=== PATIENT | male | born 1975 | race Caucasian/White ===

== ENCOUNTER 2024-03-07 19:12 | Emergency (ER) | payer OTHER, SELFPAY ==
[2024-03-07 19:15] VITALS: BP 136/83; PULSE 79; TEMP 37; O2SAT 96; BMI 31.2
--- NOTE | 2024-03-07 19:38 | XR_ITS ---
The [address] [address] Patient Name: GREGOR DAY MRN: [id number] date: 1975 Sex: M Assigned Patient Location: ER Current Patient Location: ED.MAIN Accession/Order Number: [id number] Exam Date: 03/07/2024 19:52 Report Date: 03/07/2024 20:41 At the request of: LACEY ROBERTSON Procedure: XR hand LT min 3V EXAM: XR hand LT min 3V HISTORY: Laceration, r/o foreign body, congenital defect COMPARISON: None. TECHNIQUE: 3 views of the right hand FINDINGS: Proximal phalanx of the thumb is visualized with possible additional small rudimentary osseous structures within the left thumb. However, the second through fifth digits are nonvisualized. 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 No acute fracture seen. The visualized joint alignment is unremarkable. A subtle 1.7 mm high density is seen within the distal soft tissues between the third and fourth metacarpals, which may represent a tiny retained foreign body. Please correlate clinically. XR/XR hand LT min 3V IMPRESSION: A subtle 1.7 mm high density is seen within the distal soft tissues between the third and fourth metacarpals, which may represent a tiny retained foreign body. Please correlate clinically. Electronically authenticated by: NATALIIA DWYER Date: 03/07/2024 20:41
--- NOTE | 2024-03-07 19:40 | ED_ITS ---
Documented by User: Padilla Lester MD 03/07/24 21:18 HPI - Wound/Laceration General Chief Complaint: Wound/Laceration Stated Complaint: LEFT HAND INJURY Time Seen by Provider: 03/07/24 19:36 Source: patient Mode of arrival: ambulance Limitations: no limitations History of Present Illness HPI narrative: 48-year-old male presents for laceration of the dorsum of his left hand. It occurred from a broken drill bit just before coming into the emergency department. He does not know when his last tetanus shot was, it has been a long time. 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 No other injury was sustained. Related Data Home Medications ?Medication ?Instructions ?Recorded ?Confirmed rivaroxaban 20 mg tablet (Xarelto) 20 mg PO DAILY 03/07/24 03/07/24 Previous Rx's ?Medication ?Instructions ?Recorded cephalexin 500 mg capsule 500 mg PO TID 5 days #15 caps 03/07/24 Allergies Allergy/AdvReac Type Severity Reaction Status Date / Time No Known Drug Allergies Allergy Verified 03/07/24 19:14 Review of Systems ROS Narrative A ten point review of systems is negative except as noted above. Exam Narrative Exam Narrative: Nurses note and vital signs reviewed and patient is not hypoxic. General: The patient appears well and in no apparent distress. Patient is resting comfortably on cart. Skin: Warm, dry, no pallor noted. There is no rash noted. Head: Normocephalic, atraumatic Eye: Normal conjunctiva, no drainage Ears, Nose, Mouth, and Throat: oral mucosa is moist. Nares patent. 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 He has a transverse distal laceration on the dorsum of his hand that is 4.5 cm in length and irregular. No active bleeding or obvious foreign body. Neurological: Awake and alert Psychiatric: Cooperative Constitutional Vital Signs, click to edit/add: Last Vital Signs Temp 98.6 F 03/07/24 19:15 Pulse 79 03/07/24 19:15 Resp 16 03/07/24 19:15 BP 136/83 03/07/24 19:15 Pulse Ox 96 03/07/24 19:15 O2 Del Method Room Air 03/07/24 19:15 Course Vital Signs Vital signs: Vital Signs Temperature 98.6 F 03/07/24 19:15 Pulse Rate 79 03/07/24 19:15 Respiratory Rate 16 03/07/24 19:15 Blood Pressure 136/83 03/07/24 19:15 Pulse Oximetry 96 03/07/24 19:15 Oxygen Delivery Method Room Air 03/07/24 19:15 Temperature 98.6 F 03/07/24 19:15 Pulse Rate 79 03/07/24 19:15 Respiratory Rate 16 03/07/24 19:15 Blood Pressure 136/83 03/07/24 19:15 Pulse Oximetry 96 03/07/24 19:15 Oxygen Delivery Method Room Air 03/07/24 19:15 MDM - Wound/Laceration MDM Narrative Medical decision making narrative: The wound has been repaired and he is placed on a short course of prophylactic antibiotic. Tetanus status was also updated. The possible foreign body is not in the location of his laceration. Differential Diagnosis Differential diagnosis: Likely laceration Imaging Data Hand x-ray: Radiologist's impression: ITS Impressions Hand X-Ray 03/07/24 19:38 IMPRESSION: A subtle 1.7 mm high density is seen within the distal soft tissues between the third and fourth metacarpals, which may represent a tiny retained foreign body. Please correlate clinically. Electronically authenticated by: NATALIIA DWYER Date: 03/07/2024 20:41 Discharge Plan Discharge Stand Alone Forms: Portal Instructions Chief Complaint: Wound/Laceration Clinical Impression: Laceration of hand, left Patient Disposition: Home, Self-Care Time of Disposition Decision: 20:44 Condition: Good Prescriptions / Home Meds: New cephalexin 500 mg capsule 500 mg PO TID 5 Days Qty: 15 0RF No Action Xarelto 20 mg tablet 20 mg PO DAILY Rx Instructions: must administer with evening meal Print Language: Turkish Instructions: Laceration (ED) Additional Instructions: wound recheck in 2-3 days, suture removal in 10 days Keep clean and dry. Referrals: [facility] [Outside] - As soon as possible Physician,Non-Staff, [Primary Care Provider] - 1 week Documented by User: ALFREDO Mendez 03/07/24 20:47 HPI - Wound/Laceration General Chief Complaint: Wound/Laceration Stated Complaint: LEFT HAND INJURY Time Seen by Provider: 03/07/24 19:36 Related Data Home Medications ?Medication ?Instructions ?Recorded ?Confirmed rivaroxaban 20 mg tablet (Xarelto) 20 mg PO DAILY 03/07/24 03/07/24 Previous Rx's ?Medication ?Instructions ?Recorded cephalexin 500 mg capsule 500 mg PO TID 5 days #15 caps 03/07/24 Allergies Allergy/AdvReac Type Severity Reaction Status Date / Time No Known Drug Allergies Allergy Verified 03/07/24 19:14 Exam Constitutional Vital Signs, click to edit/add: Last Vital Signs Temp 98.6 F 03/07/24 19:15 Pulse 79 03/07/24 19:15 Resp 16 03/07/24 19:15 BP 136/83 03/07/24 19:15 Pulse Ox 96 03/07/24 19:15 O2 Del Method Room Air 03/07/24 19:15 Course Vital Signs Vital signs: Vital Signs Temperature 98.6 F 03/07/24 19:15 Pulse Rate 79 03/07/24 19:15 Respiratory Rate 16 03/07/24 19:15 Blood Pressure 136/83 03/07/24 19:15 Pulse Oximetry 96 03/07/24 19:15 Oxygen Delivery Method Room Air 03/07/24 19:15 Temperature 98.6 F 03/07/24 19:15 Pulse Rate 79 03/07/24 19:15 Respiratory Rate 16 03/07/24 19:15 Blood Pressure 136/83 03/07/24 19:15 Pulse Oximetry 96 03/07/24 19:15 Oxygen Delivery Method Room Air 03/07/24 19:15 MDM - Wound/Laceration Imaging Data Hand x-ray: Radiologist's impression: ITS Impressions Hand X-Ray 03/07/24 19:38 IMPRESSION: A subtle 1.7 mm high density is seen within the distal soft tissues between the third and fourth metacarpals, which may represent a tiny retained foreign body. Please correlate clinically. Electronically authenticated by: NATALIIA DWYER Date: 03/07/2024 20:41 Discharge Plan Discharge Stand Alone Forms: Portal Instructions Chief Complaint: Wound/Laceration Clinical Impression: Laceration of hand, left Patient Disposition: Home, Self-Care Time of Disposition Decision: 20:44 Condition: Good Prescriptions / Home Meds: New cephalexin 500 mg capsule 500 mg PO TID 5 Days Qty: 15 0RF No Action Xarelto 20 mg tablet 20 mg PO DAILY Rx Instructions: must administer with evening meal Print Language: Turkish Instructions: Laceration (ED) Additional Instructions: wound recheck in 2-3 days, suture removal in 10 days Keep clean and dry. Referrals: [facility] [Outside] - As soon as possible Physician,Non-Staff, MD [Primary Care Provider] - 1 week Procedures ED Laceration Laceration Laceration 1: Additional comments: Laceration repair: Done under sterile conditions. The use of Betadine was used to prep and clean the area. Local injection with lidocaine 1% was used, approximately 4 cc. The wound was irrigated copiously with normal saline. The wound was explored there was no evidence of foreign material. The laceration was approximated with 4-0 nylon. 8 simple interrupted sutures were placed. Patient tolerated the procedure well. The patient was neurovascularly intact post. the patient had dry sterile dressing was place. The patient will need to follow-up in the next 10 days for removal. Procedure by Camille HURTADO
[2024-03-07] MEDS: LIDOCAINE HCL 1% 100 MG/10 ML MDV INJ (20:06)
[2024-03-07] MEDS: ADACEL DIPH,PERTUSS(ACELL),TET VAC/PF 0.5 ML ADULT SYRINGE IM (20:06)
[2024-03-07 21:20] VITALS: BP 135/87; PULSE 83; O2SAT 91
== END 2024-03-07 21:25 | disposition home or self-care (01) ==
PROVIDERS: Emergency Provider Emergency Medicine
DX: S61.412A Laceration without foreign body of left hand, initial encounter (principal); Z23 Encounter for immunization; W26.8XXA Contact with other sharp object(s), not elsewhere classified, initial encounter; Q74.0 Other congenital malformations of upper limb(s), including shoulder girdle
CPT/HCPCS: 12002; 73130; 90471; 90715; 99283